=== PATIENT | female | born 1960 | race Caucasian/White ===

== ENCOUNTER 2017-12-30 10:03 | Emergency (ER) | payer OTHER, MEDICARE ==
--- NOTE | 2017-12-30 10:11 | ER Document Report ---
HPI - HPI Patient complains to provider of: Left hip pain Onset: Other - morning at 02 100 Onset/Duration: Sudden Pain Level: 5 Context: 57-year-old female was woken up at 02 100 with soft tissue left hip pain that got worse and Monday and is still there today. She did her normal routines nothing out of the ordinary. She did exercise swim and mow the grass on Monday like she usually does. She has been having to use her walker because of the pain increases when she steps down. She is a history of arthritis and lumbar spine surgery. Associated Symptoms: None Exacerbated by: Walking Relieved by: Denies Similar symptoms previously: No Recently seen / treated by doctor: No - ROS ROS below otherwise negative: Yes Systems Reviewed and Negative: Yes All other systems reviewed and negative Past Medical History - General Information source: Patient - Social History Smoking Status: Current Every Day Smoker Frequency of alcohol use: None Drug Abuse: None Lives with: Family Family History: Reviewed & Not Pertinent - Past Medical History Cardiac Medical History: Reports: Hx Hypercholesterolemia, Hx Hypertension Endocrine Medical History: Reports: Hx Diabetes Mellitus Type 2 Musculoskeltal Medical History: Reports Other - Back surgery with hardware, left total ulna bone removal Psychiatric Medical History: Reports: Hx Anxiety Past Surgical History: Reports: Hx Orthopedic Surgery - See above Vertical Provider Document - CONSTITUTIONAL Agree With Documented VS: Yes Exam Limitations: No Limitations - INFECTION CONTROL TRAVEL OUTSIDE OF THE [place] IN LAST 30 DAYS: No - HEENT HEENT: Atraumatic - NECK Neck: Supple - MUSCULOSKELETAL/EXTREMETIES Musculoskeletal/Extremeties: Tender - Soft tissue lateral left hip 4 inches above the great trochanter, No Edema - No erythema or rash - NEURO Level of Consciousness: Awake Motor/Sensory: No Motor Deficit, No Sensory Deficit - DERM Integumentary: No Rash Course - Re-evaluation Re-evalutation: 12/30/17 11:24 X-rays negative for acute injury she has bilateral degenerative joint disease in the hips. Per radiologist Discharge - Discharge Clinical Impression: Left hip muscle strain Degenerative arthritis of hip Qualifiers: Osteoarthritis type: primary Laterality: bilateral Qualified Code(s): M16.0 - Bilateral primary osteoarthritis of hip Condition: Good Disposition: HOME, SELF-CARE Instructions: Anti-Inflammatory Medication ([facility]), Arthritis ([facility]), Muscle Relaxers ([facility]), Oral Narcotic Medication ([facility]) Additional Instructions: [facility] Return to the emergency room worsening of symptoms Use your walker Prescriptions: Hydrocodone Bit/Acetaminophen [Hydrocodon-Acetaminophen 5-325] 1 each PO Q4HP PRN #15 tablet PRN Reason: Lidocaine [Lidoderm 5% (700 mg) Transdermal Patch] 1 patch TP DAILY #30 adh..patch Referrals: ULISES JEFF NP [Primary Care Provider] - Follow up as needed
[2017-12-30 10:14] VITALS: BP 137/67
--- NOTE | 2017-12-30 10:54 | RADIOLOGY REPORT (SQ) ---
EXAM DESCRIPTION: HIP LEFT AP/LATERAL COMPLETED DATE/TIME: 12/30/2017 10:30 am REASON FOR STUDY: Left hip pain COMPARISON: None. NUMBER OF VIEWS: Two views, AP pelvis and frog lateral left hip. LIMITATIONS: None. FINDINGS: Normal bone density. Lower lumbar degenerative and postoperative changes. SI joints inta ct. Bilateral hip joint space narrowing and osteophytes, relatively symmetric DJD. No fracture or b one lesion. OTHER: No other significant finding. IMPRESSION: DJD. No displaced hip fracture identified. TECHNICAL DOCUMENTATION: JOB ID: [id number] Reading location - IP/workstation name: [email or web address]
== END 2017-12-30 11:30 | disposition home or self-care (01) ==
LOC: ER 10:03
DX: S76.012A Strain of muscle, fascia and tendon of left hip, initial encounter (principal); X58.XXXA Exposure to other specified factors, initial encounter; M16.0 Bilateral primary osteoarthritis of hip; M25.552 Pain in left hip; F17.200 Nicotine dependence, unspecified, uncomplicated; I10 Essential (primary) hypertension; E11.9 Type 2 diabetes mellitus without complications
CPT/HCPCS: 99283

== ENCOUNTER 2018-03-22 07:32 | Emergency (ER) | payer OTHER, MEDICARE ==
--- NOTE | 2018-03-22 08:30 | ER Document Report ---
HPI - HPI Pain Level: 3 Notes: Patient is a 57-year-old female who presents to the ED complaining of swollen painful swelling to the posterior inferior scalp 1-2 days. Patient states that she has noticed some drainage from that area, but does not know if it is purulent or clear. Patient states that it is causing soreness to the area and a mild headache. She does not have any history of MRSA. Her pain does not radiate otherwise. She still able to eat and drink without difficulties. She is urinating normally and having normal bowel movements. Denies any fever, head injury, neck pain, changes in vision/speech/mentation/hearing, URI, sore throat, chest pain, palpitations, syncope, cough, shortness of breath, wheeze, dyspnea, abdominal pain, nausea/vomiting/diarrhea, urinary retention, dysuria, hematuria, loss of control of bowel or bladder, numbness/tingling, saddle anesthesia, muscle paralysis/weakness, or rash. - ROS Systems Reviewed and Negative: Yes All other systems reviewed and negative - NEURO Neurology: REPORTS: Headache Past Medical History - Social History Smoking Status: Current Every Day Smoker Chew tobacco use (# tins/day): No Frequency of alcohol use: Rare Drug Abuse: Marijuana Family History: Reviewed & Not Pertinent Patient has suicidal ideation: No Patient has homicidal ideation: No - Past Medical History Cardiac Medical History: Reports: Hx Hypercholesterolemia, Hx Hypertension Endocrine Medical History: Reports: Hx Diabetes Mellitus Type 1, Hx Diabetes Mellitus Type 2 Renal/ Medical History: Denies: Hx Peritoneal Dialysis Musculoskeletal Medical History: Reports Hx Arthritis - osteo Psychiatric Medical History: Reports: Hx Anxiety, Hx Bipolar Disorder Past Surgical History: Reports: Hx Orthopedic Surgery, Hx Thyroid Surgery Vertical Provider Document - CONSTITUTIONAL Agree With Documented VS: Yes Notes: PHYSICAL EXAMINATION: GENERAL: Well-appearing, well-nourished and in no acute distress. HEAD: Atraumatic, normocephalic. EYES: Pupils equal round and reactive to light, extraocular movements intact, sclera anicteric, conjunctiva are normal. ENT: EAC clear b/l. TM's intact b/l without erythema, fluid, or perforation. Nares patent and without discharge. oropharynx clear without exudates. No tonsilar hypertrophy or erythema. Moist mucous membranes. NECK: Normal range of motion, supple without lymphadenopathy LUNGS: Breath sounds clear to auscultation bilaterally and equal. No wheezes rales or rhonchi. HEART: Regular rate and rhythm without murmurs, rubs, gallops. ABDOMEN: Soft, nontender, nondistended abdomen. No guarding, no rebound. No masses appreciated. Normal bowel sounds present. No CVA tenderness bilaterally. Musculoskeletal: FROM to passive/active. Strength 5+/5. Extremities: No cyanosis, clubbing, or edema b/l. Peripheral pulses 2+. Capillary refill less than 3 seconds. NEUROLOGICAL: Cranial nerves grossly intact. Normal speech, normal gait. Normal sensory, motor exams PSYCH: Normal mood, normal affect. SKIN: posterior/inferior scalp: there is a 1.5cm area of mild erythema and swelling noted with an abrasion appearance noted superficially. + tenderness. No fluctuance, streaks, or purulent discharge. I was able to express the wound as it is already open and only clear fluid was noted. + mild induration. - INFECTION CONTROL TRAVEL OUTSIDE OF THE [place] IN LAST 30 DAYS: No Course - Re-evaluation Re-evalutation: 03/22/18 08:28 Patient is an afebrile, well-hydrated, 57-year-old female who presents to the ED for a skin infection to the posterior scalp which I suspect to be bacterial. Vitals are acceptable without any significant tachycardia, tachypnea, or hypoxia. PE is otherwise unremarkable. No I&D is warranted at this time as the wound was already slightly open and only clear fluid was expressed. The area is relatively smaller otherwise without any streaking and minimal induration. Patient is nontoxic-appearing and is tolerating p.o. without difficulties. No history of MRSA, but I will send her home with a prescription for Keflex and Bactrim. Conservative measures for symptoms otherwise. Low suspicion for any sepsis, meningitis, severe dehydration, respiratory compromise , or other systemic emergent condition at this time. Patient is aware that condition can change from initial presentation and she needs to monitor symptoms closely and seek medical attention with any acute changes. Recheck with your PCM in 2-3 days. Return to the ED with any worsening/concerning symptoms otherwise as reviewed in discharge. Patient is in agreement. - Vital Signs Vital signs: Temp Pulse Resp BP Pulse Ox 98.0 F 74 16 156/84 H 96 03/22/18 07:38 03/22/18 07:38 03/22/18 07:38 03/22/18 07:38 03/22/18 07:38 Discharge - Discharge Clinical Impression: Scalp abrasion, infected Qualifiers: Encounter type: initial encounter Qualified Code(s): S00.01XA - Abrasion of scalp, initial encounter; L08.9 - Local infection of the skin and subcutaneous tissue, unspecified; L08.9 - Local infection of the skin and subcutaneous tissue , unspecified Condition: Stable Disposition: HOME, SELF-CARE Instructions: Cephalexin ([facility]), Trimethoprim-Sulfa ([facility]) Additional Instructions: Keep the skin clean Wash with soap and water Tylenol/ibuprofen if needed Triple antibiotic ointment daily Take medication as directed Monitor for any worsening symptoms Recheck with your PCM in 2-3 days Return to the ED with any worsening symptoms and/or development of fever, headache, chest pain, palpitations, syncope, shortness of breath, trouble breathing, abdominal pain, n/v/d, abscess, purulent discharge, red streaks, worsening swelling, or other worsening symptoms that are concerning to you. Prescriptions: Cephalexin Monohydrate [Keflex 500 mg Capsule] 500 mg PO TID #30 capsule Sulfamethoxazole/Trimethoprim [Bactrim Ds Tablet] 1 each PO BID #20 tablet Forms: Elevated Blood Pressure Referrals: ULISES JEFF NP [Primary Care Provider] - 03/26/18
[2018-03-22 08:46] VITALS: BP 147/75
== END 2018-03-22 08:46 | disposition home or self-care (01) ==
LOC: ER 07:32
DX: S00.01XA Abrasion of scalp, initial encounter (principal); L08.9 Local infection of the skin and subcutaneous tissue, unspecified; X58.XXXA Exposure to other specified factors, initial encounter; E11.9 Type 2 diabetes mellitus without complications; F17.200 Nicotine dependence, unspecified, uncomplicated; I10 Essential (primary) hypertension; F12.10 Cannabis abuse, uncomplicated
CPT/HCPCS: 87070; 87077; 87186; 87205; 99283

== ENCOUNTER 2018-05-06 17:49 | Emergency (ER) | payer OTHER, MEDICARE ==
[2018-05-06 17:55] VITALS: BP 152/73
--- NOTE | 2018-05-06 18:50 | ER Document Report ---
ED ENT - General Chief Complaint: Nose Problem Stated Complaint: NASAL IRRITATION Time Seen by Provider: 05/06/18 18:31 Mode of Arrival: Ambulatory Information source: Patient Notes: 57-year-old female presented to ED for sensation of feeling like there was something moving inside the right nare of her nose. She states she did not feel like she had a cold she did not feel like she had congestion she just felt like there was a bug may be a spider in her nose. TRAVEL OUTSIDE OF THE [place] IN LAST 30 DAYS: No - HPI Patient complains to provider of: Nose problem Onset: Other - 2 months worse the last couple days Onset/Duration: Intermittent Context: Other - Like something is moving in her nose Location of pain: Nose Associated symptoms: Other - Like something moving in her right nare Similar symptoms previously: No Recently seen / treated by doctor: No - Related Data Allergies/Adverse Reactions: codeine Allergy (Verified 03/22/18 07:32) Past Medical History - General Information source: Patient - Social History Smoking Status: Current Every Day Smoker Cigarette use (# per day): Yes Chew tobacco use (# tins/day): No Frequency of alcohol use: Occasional Drug Abuse: Marijuana Lives with: Family Family History: Reviewed & Not Pertinent Patient has suicidal ideation: No Patient has homicidal ideation: No - Past Medical History Cardiac Medical History: Reports: Hx Hypercholesterolemia, Hx Hypertension Pulmonary Medical History: Reports: None EENT Medical History: Reports: None Neurological Medical History: Reports: None Endocrine Medical History: Reports: Hx Diabetes Mellitus Type 2 Renal/ Medical History: Reports: None Malignancy Medical History: Reports: None GI Medical History: Reports: None Musculoskeletal Medical History: Reports Hx Arthritis - osteo Skin Medical History: Reports None Psychiatric Medical History: Reports: Hx Anxiety, Hx Bipolar Disorder, Hx Post Traumatic Stress Disorder Traumatic Medical History: Reports: None Infectious Medical History: Reports: None Past Surgical History: Reports: Hx Orthopedic Surgery, Hx Thyroid Surgery Review of Systems - Review of Systems Constitutional: No symptoms reported EENT: Other - [place] like there was a bug moving in her right nare Cardiovascular: No symptoms reported Respiratory: No symptoms reported Gastrointestinal: No symptoms reported Genitourinary: No symptoms reported Female Genitourinary: No symptoms reported Musculoskeletal: No symptoms reported Skin: No symptoms reported Hematologic/Lymphatic: No symptoms reported Neurological/Psychological: No symptoms reported Physical Exam - Vital signs Vitals: Temp Pulse Resp BP Pulse Ox 98.4 F 80 16 152/73 H 95 05/06/18 17:54 05/06/18 17:54 05/06/18 17:54 05/06/18 17:54 05/06/18 17:54 Interpretation: Normal - General General appearance: Appears well, Alert - HEENT Head: Normocephalic, Atraumatic Eyes: Normal Pupils: PERRL Ears: Normal External canal: Normal Tympanic membrane: Normal Sinus: Normal Nasal: Other - Patient states it felt like there was a bug moving in her right nare Mouth/Lips: Normal Mucous membranes: Normal Pharynx: Normal - Respiratory Respiratory status: No respiratory distress Chest status: Nontender Breath sounds: Normal Chest palpation: Normal - Cardiovascular Rhythm: Regular Heart sounds: Normal auscultation Murmur: No - Abdominal Inspection: Normal Distension: No distension Bowel sounds: Normal Tenderness: Nontender Organomegaly: No organomegaly - Back Back: Normal, Nontender - Extremities General upper extremity: Normal inspection, Nontender, Normal color, Normal ROM , Normal temperature General lower extremity: Normal inspection, Nontender, Normal color, Normal ROM , Normal temperature, Normal weight bearing. No: July's sign - Neurological Neuro grossly intact: Yes Cognition: Normal Orientation: AAOx4 [place] Coma Scale Eye Opening: Spontaneous [place] Coma Scale Verbal: Oriented [place] Coma Scale Motor: Obeys Commands Syeda Coma Scale Total: 15 Speech: Normal Motor strength normal: LUE, RUE, LLE, RLE Sensory: Normal - Psychological Associated symptoms: Normal affect, Normal mood - Skin Skin Temperature: Warm Skin Moisture: Dry Skin Color: Normal Course - Vital Signs Vital signs: Temp Pulse Resp BP Pulse Ox 98.4 F 80 16 152/73 H 95 05/06/18 17:54 05/06/18 17:54 05/06/18 17:54 05/06/18 17:54 05/06/18 17:54 Discharge - Discharge Clinical Impression: sensation of foreign body in nose Condition: Stable Disposition: HOME, SELF-CARE Additional Instructions: You were seen today for complaint of feeling like there was movement in your right nare. He states she thought there may be a bug in your nose. You have stated that she do not have nasal congestion but there is swelling and clear drainage from your bilateral nares. Continue taking your Claritin that you have been taken. And follow-up with your manager contract concerning your continued eye drainage on your Restasis. FOLLOW-UP CARE: If you have been referred to a physician for follow-up care, call the physician s office for an appointment as you were instructed or within the next two days. If you experience worsening or a significant change in your symptoms, notify the physician immediately or return to the Emergency Department at any time for re-evaluation. Forms: Elevated Blood Pressure Referrals: ULISES JEFF NP [Primary Care Provider] - Follow up as needed
== END 2018-05-06 18:48 | disposition home or self-care (01) ==
LOC: ER 17:49
DX: T17.1XXA Foreign body in nostril, initial encounter (principal); J34.89 Other specified disorders of nose and nasal sinuses; F17.210 Nicotine dependence, cigarettes, uncomplicated; I10 Essential (primary) hypertension; E11.9 Type 2 diabetes mellitus without complications; X58.XXXA Exposure to other specified factors, initial encounter
CPT/HCPCS: 99282

== ENCOUNTER 2018-11-21 00:59 | Emergency (ER) | payer OTHER, MEDICARE ==
[2018-11-21 01:21] VITALS: BP 138/73
[2018-11-21] MEDS ORDERED: DOXYCYCLINE HYCLATE 100 MG TABLET PO ONE (05:32)
--- NOTE | 2018-11-21 23:58 | ER Document Report ---
ED General - General Chief Complaint: Abscess Stated Complaint: VAGINAL LESION Primary Care Provider: ULISES JEFF NP [Primary Care Provider] - Follow up as needed Notes: Patient is a pleasant 58-year-old female presents with complaints of a lesion on her right vaginal labia. Patient says is been there for several days. She has not been sexually active for over 10 years. No history of herpes. She states that she squeezed in a shower but she is unsure of anything came out of it. She said it did initially feel more swollen. No fevers. No abnormal vaginal discharge. No other complaints at this time. TRAVEL OUTSIDE OF THE [place] IN LAST 30 DAYS: No - Related Data Allergies/Adverse Reactions: codeine Allergy (Verified 03/22/18 07:32) Past Medical History - Social History Smoking Status: Never Smoker Frequency of alcohol use: None Drug Abuse: None Family History: Reviewed & Not Pertinent - Past Medical History Cardiac Medical History: Reports: Hx Hypercholesterolemia, Hx Hypertension Endocrine Medical History: Reports: Hx Diabetes Mellitus Type 1, Hx Diabetes Mellitus Type 2 Renal/ Medical History: Denies: Hx Peritoneal Dialysis Musculoskeletal Medical History: Reports Hx Arthritis - osteo Psychiatric Medical History: Reports: Hx Anxiety, Hx Bipolar Disorder, Hx Post Traumatic Stress Disorder Past Surgical History: Reports: Hx Orthopedic Surgery, Hx Thyroid Surgery Review of Systems - Review of Systems Notes: My Normal Review Basic REVIEW OF SYSTEMS: CONSTITUTIONAL : Denies fever, chills, or sweats. Denies recent illness. GASTROINTESTINAL: Denies abdominal pain. Denies nausea, vomiting, or diarrhea. GENITOURINARY: Denies difficulty urinating, painful urination, burning, frequency, or blood in urine. FEMALE GENITOURINARY: Abnormal lesion on vaginal labia. MUSCULOSKELETAL: Denies neck or back pain or joint pain or swelling. SKIN: Denies rash or skin lesions. NEUROLOGICAL: Denies altered mental status or loss of consciousness. ALL OTHER SYSTEMS REVIEWED AND NEGATIVE. Physical Exam - Vital signs Vitals: Temp Pulse Resp BP Pulse Ox 97.7 F 80 20 138/73 H 96 11/21/18 01:20 11/21/18 01:20 11/21/18 01:20 11/21/18 01:20 11/21/18 01:20 - Notes Notes: General Appearance: Well nourished, alert, cooperative, no acute distress, mild obvious discomfort. Vitals: reviewed, See vital signs table. Abdomen: Normal BS, soft, No rigidity, No abdominal tenderness, No guarding, no rebound, no abdominal masses, no organomegaly Genitalia: Patient has an area of 2 small sores over the right vaginal labia. It is over the area where there is a few hair follicles. There is no swelling or fluctuance. No evidence of abscess. No drainage. No abnormal redness to the labia. Skin: warm, dry, appropriate color, no rash Neuro: speech clear, oriented x 3, normal affect, responds appropriately to questions. Course - Re-evaluation Re-evalutation: 11/21/18 23:56 Patient has what appears to be few sores over a localized area on the right vaginal labia. There is over the area where she has multiple hair follicles and therefore this could be related to excoriation from irritated hair follicles. If the patient was recent sexually active I would consider herpes but the patient swears that she has not been sexually active for over 10 years and says before that she was sexual monogamous without concerns for any type of sexually transmitted diseases. I will place her on an antibiotic and have her follow-up with the body trimmer upholsterer. Dictation of this chart was performed using voice recognition software; therefore, there may be some unintended grammatical errors. - Vital Signs Vital signs: Temp Pulse Resp BP Pulse Ox 97.7 F 80 20 138/73 H 96 11/21/18 01:20 11/21/18 01:20 11/21/18 01:20 11/21/18 01:20 11/21/18 01:20 Discharge - Discharge Clinical Impression: Vaginal lesion Condition: Good Disposition: HOME, SELF-CARE Additional Instructions: Patient's discharge was done during computer downtime. She was given instructions [facility] She was placed in antibiotic. She is encouraged to return to ER if she had spreading redness or swelling or any signs of worsening. Patient agreed with plan was discharged home. Referrals: ULISES JEFF NP [Primary Care Provider] - Follow up as needed
== END 2018-11-21 05:37 | disposition home or self-care (01) ==
LOC: ER 00:59
DX: N76.4 Abscess of vulva (principal); I10 Essential (primary) hypertension
CPT/HCPCS: 99282